=== PATIENT | female | born 1940 | race Caucasian/White ===

== ENCOUNTER 2018-09-05 09:50 | Day surgery (SDC) | payer MEDICARE ==
[~2018-09-05] VITALS: Ht 160 cm; Wt 71.4 kg
[~2018-09-05 09:50] MED LIST: ASCO500 PO; CALCA500CH PO; CALCIT950 PO; CHOL10002 PO; EXTRA STRENGTH500 MG PO; LANS15EC PO; MULVITMIND PO; OXYC5 PO; Omega 3 1,0001 EACH PO; PROLIA60 MG/1 ML SQ; ZESTORETIC 20-121 EA PO
== END 2018-09-05 12:24 | disposition home or self-care (01) ==
LOC: ORSCSDS 09:50
PROVIDERS: Internal Medicine Gastroenterology
PROC: 0DBN8ZX Excision of Sigmoid Colon, Via Natural or Artificial Opening Endoscopic, Diagnostic (ICD-10-PCS; principal; 2018-09-05 11:15)
PROC: 0DBM8ZX Excision of Descending Colon, Via Natural or Artificial Opening Endoscopic, Diagnostic (ICD-10-PCS; principal; 2018-09-05 11:15)
PROC: 0DBB8ZX Excision of Ileum, Via Natural or Artificial Opening Endoscopic, Diagnostic (ICD-10-PCS; principal; 2018-09-05 11:15)
PROC: 0DBL8ZX Excision of Transverse Colon, Via Natural or Artificial Opening Endoscopic, Diagnostic (ICD-10-PCS; principal; 2018-09-05 11:15)
DX: Z12.11 Encounter for screening for malignant neoplasm of colon (principal); D12.4 Benign neoplasm of descending colon; D12.3 Benign neoplasm of transverse colon; D12.5 Benign neoplasm of sigmoid colon; K52.9 Noninfective gastroenteritis and colitis, unspecified; K64.8 Other hemorrhoids; K64.4 Residual hemorrhoidal skin tags; I10 Essential (primary) hypertension; E78.5 Hyperlipidemia, unspecified; Z86.010 Personal history of colon polyps; Z79.899 Other long term (current) drug therapy
CPT/HCPCS: 88305; J7120

== ENCOUNTER → 2020-05-04 | Outpatient (CLI) | payer MEDICARE | END | disposition home or self-care (01) | LOC: LAB 10:40 → LAB SHORT 10:40 | DX: D48.5 Neoplasm of uncertain behavior of skin (principal) | CPT/HCPCS: 88305 ==

== ENCOUNTER 2023-06-11 05:48 | Day surgery (SDC) | payer MEDICARE ==
[~2023-06-11] VITALS: Ht 160 cm; Wt 75.3 kg
[2023-06-11] VITALS (11 sets, daily range): BP systolic 96–149; BP diastolic 56–88
[~2023-06-11 05:48] MED LIST changes: +AMOX250 PO; +Amlodipine Bes2.5 MG PO; +CALCIUM CITRAT200 MG PO; +FERROUS GLUCON324 M2 PO; +GABA100 PO; +Lisinopril-Hct1 EAC4 PO; +MULVITA PO; +VITAMIN C125 MG PO; +VITAMIN D310 MC4 PO
[2023-06-11] MEDS ORDERED: ALLERGY RELIEF5 M1 PO (06:22)
--- NOTE | 2023-06-11 06:54 | NUR ---
History, Chart, Medications and Allergies reviewed before start of procedure. Lungs clear T/O to Auscultation. Patient confirms NPO status and agrees with scheduled surgery. Pre-Op teaching done. Pt verbalizes understanding. Patient reports completing Chlorhexadine shower X2 prior to admission to hospital.
[2023-06-11] MEDS ORDERED: HYDR1TAB94 PO (13:06)
[2023-06-11] MEDS ORDERED: ACET500 PO (13:06)
[2023-06-11] MEDS ORDERED: ASPI81CH PO (13:06)
--- NOTE | 2023-06-11 16:26 | NUR ---
SHIFT SUMMARY PT IS POD#0 FROM R TKA WITH DR. MORALES. PT HAS WORKED WITH THERAPY AND IS A 1 PERSON ASSIST WHEN OOB. PT HAS VOIDED. SHE IS TOLERATING PO. PT RESTING IN BED, CALL LIGHT WITHIN REACH.
[2023-06-12 00:20] VITALS: BP 132/70
[2023-06-12 03:37] VITALS: BP 126/67
--- NOTE | 2023-06-12 04:04 | NUR ---
SHIFT SUMMARY PT POD 0 R TKA. AQUACEL DRESSING C/D/I. PAIN WELL MANAGED WITH SCHEDULED PAIN MEDICATION. MEDICATED ONCE WITH PRN DAVID. PT SBA W/FWW AND GAIT BELT TO BATHROOM. VOIDING W/O DIFFICULTY. TOLERATING REGULAR DIET WITH NO N/V. PLAN TO WORK WITH PT AND DC HOME.
[2023-06-12 04:34] LABS: BASOPHILS ABSOLUTE AUTO 0.01 K/mm3 (0.00-0.23); BASOPHILS PERCENT AUTO 0 % (0-2); EOSINOPHILS PERCENT AUTO 0 % (0-6); Hematocrit 33.9 % (33.0-51.0); Hemoglobin 11.3 g/dL (11.5-16.0); IMMATURE GRAN ABSOLUTE AUTO 0.12 K/mm3 (0.00-0.10); IMMATURE GRAN PERCENT AUTO 1 % (0-1); LYMPHOCYTES ABSOLUTE AUTO 1.32 K/mm3 (0.84-5.20); LYMPHOCYTES PERCENT AUTO 7 % (21-46); MONOCYTES ABSOLUTE AUTO 1.86 K/mm3 (0.16-1.47); MONOCYTES PERCENT AUTO 9 % (4-13); Mean Corpuscular HGB 29.6 pg (26.0-34.0); Mean Corpuscular HGB Conc 33.3 g/dL (31.5-36.5); Mean Corpuscular Volume 89 fL (80-100); Mean Platelet Volume 9.3 fL (9.1-12.4); NEUTROPHILS ABSOLUTE AUTO 16.53 K/mm3 (1.96-9.15); NEUTROPHILS PERCENT AUTO 83 % (41-73); Platelet Count 324 K/mm3 (150-400); RDW Coefficient Variation 13.4 % (11.7-14.2); RDW Standard Deviation 43.4 fL (35.1-46.3); Red Blood Cell Count 3.82 M/mm3 (3.80-5.20); White Blood Cell Count 19.84 K/mm3 (4.00-11.30)
[2023-06-12 04:52] LABS: Bun/Creatinine Ratio 24.5 (12.0-20.0); Calcium, Blood 8.4 mg/dL (8.5-10.1); Creatinine, Blood 0.82 mg/dL (0.40-1.00); Magnesium, Blood 1.6 mg/dL (1.6-2.4); Potassium, Blood 4.2 mmol/L (3.5-5.5)
[2023-06-12 07:05] VITALS: BP 136/61
[2023-06-12 09:36] VITALS: BP 146/63
--- NOTE | 2023-06-12 09:44 | NUR ---
DISCHARGE INSTRUCTIONS PT WAS PROVIDED WITH WRITTEN AND VERBAL DISCHARGE INSTRUCTIONS, PT REPORTED UNDERSTANDING. VSS. PT HAS CALLED FOR A RIDE HOME, SHE IS WAITING FOR HER TO ARRIVE. PT MEETING ALL GOALS. PT RESTING IN THE CHAIR CALL LIGHT WITHIN REACH, POLAR PACK IN PLACE.
--- NOTE | 2023-06-12 10:26 | NUR ---
DISCHARGE PT ASSISTED OUT IN W/C AT 0750 BY DEWAYNE SANDHU.
== END 2023-06-12 09:50 | disposition home or self-care (01) ==
LOC: ORSCMMR 05:48 → ORD 07:30 → SURS 09:49 → ORSCMMR 06-12 09:50
PROVIDERS: Orthopaedic Surgery
PROC: 0SRC0JA Replacement of Right Knee Joint with Synthetic Substitute, Uncemented, Open Approach (ICD-10-PCS; principal; 2023-06-11 07:30)
DX: M17.11 Unilateral primary osteoarthritis, right knee (principal); Z96.652 Presence of left artificial knee joint; I10 Essential (primary) hypertension; K21.9 Gastro-esophageal reflux disease without esophagitis; F41.9 Anxiety disorder, unspecified; Z79.899 Other long term (current) drug therapy
CPT/HCPCS: 36415; 73560-RT; 80048; 83735; 85025; 97110; 97116; 97162; 97530; A9270; C1713; C1776; C9113; J0171; J0690; J0735; J1170; J1885; J2250; J2704; J2795; J3010; J7120

== ENCOUNTER 2025-06-06 12:05 | Emergency (ER) | payer MEDICARE ==
[~2025-06-06] VITALS: Ht 157.5 cm; Wt 70.3 kg
[~2025-06-06 12:05] MED LIST changes: +ACET325 PO; +ACET500 PO; +ALLERGY RELIEF5 M1 PO; +ASPI81CH PO; +GABA300 PO; +HYDR1TAB94 PO; +Norco 5-325 Ta1 EACH PO; +PROLIA60 MG/1 ML SC
[2025-06-06 12:08] VITALS: BP 130/74
[2025-06-06] MEDS ORDERED: VANCOCIN HCL125 MG PO (12:19)
[2025-06-06] MEDS ORDERED: ONDA4ODT MM (12:19)
[2025-06-06] MEDS ORDERED: Ondansetron 4 MG SoluTab SL ONE (12:20)
== END 2025-06-06 12:27 | disposition home or self-care (01) ==
LOC: ER 12:05
DX: A04.72 Enterocolitis due to Clostridium difficile, not specified as recurrent (principal); Z88.5 Allergy status to narcotic agent; Z79.899 Other long term (current) drug therapy
CPT/HCPCS: 99283; A9270

== ENCOUNTER → 2025-07-08 | Outpatient (CLI) | payer MEDICARE ==
[~2025-07-08] MED LIST changes: +ONDA4ODT MM; +VANCOCIN HCL125 MG PO
[2025-07-08 17:18] LABS: Campylobacter Sp Not Detected (NOT DETECT); E. Coli O157 Not Detected (NOT DETECT); Enteroaggregative E. coli-EAEC Not Detected (NOT DETECT); Enteropathogenic E. coli-EPEC Not Detected (NOT DETECT); Enterotoxigenic E. coli-ETEC Not Detected (NOT DETECT); Salmonella Sp Not Detected (NOT DETECT); Shiga Toxin-prod E. coli-STEC Not Detected (NOT DETECT); Shigella/Enteroin E. coli-EIEC Not Detected (NOT DETECT); Vibrio Sp Not Detected (NOT DETECT)
== END ==
LOC: LAB SHORT 14:52 → LAB 14:52
PROVIDERS: Nurse Practitioner
DX: A09 Infectious gastroenteritis and colitis, unspecified (principal)
CPT/HCPCS: 87324; 87507